=== PATIENT | male | born 1940 | race Caucasian/White ===

== ENCOUNTER 2016-05-19 23:45 | Emergency (ER) | payer MEDICARE, BC ==
--- NOTE | ~2016-05-19 | CR72 ---
[facility] A Service of [facility] RADIOLOGY TEXT RESULTS PATIENT: DESTINY PALENCIA LOCATION: [facility] : 40 UNIT #: [id number] AGE: [address]: Mike Montiel MD SEX: M ORDER DR: [id number] [facility] [address] [place], [place] [address] [id number] E MR#: [id number] Acc #: [id number] NAME: DESTINY PALENCIA. : 1940 SEX: M STUDY DATE/TIME: 05/19/2016 23:41 UNIT: [facility] ROOM: STUDY DESCRIPTION: CR Chest Single View Portable Attending Physician: Er Doctor [facility] Ordering Physician: Mike Montiel M.D. Primary Care Physician: Kya Houston M.D. MEDICAL IMAGING REPORT This report is preliminary unless electronic signature is present EXAM Portable AP view of the chest COMPARISON July 26, 2013, June 29, 2013 and May 17, 2012. INDICATION 76-year-old male with chest pain and dyspnea for 1 day. FINDINGS Median sternotomy and changes of CABG noted. No evidence of sternotomy dehiscence. No pneumothorax or pleural effusion. Cardiomediastinal silhouette is within normal limits. No evidence of acute airspace disease. Degenerative changes of the lower cervical spine. There are likely arterial calcifications as well in the bilateral lower neck. Calcified granuloma left upper lobe. IMPRESSION 1. Prior CABG. No acute radiographic abnormality of the chest. Normal heart size. 2. Arterial calcifications are suspected in the bilateral lower neck, not well evaluated on this study due to partial exclusion. Dictated by... Bandar Hamlin M.D. THIS IS AN ELECTRONICALLY VERIFIED REPORT Bandar Hamlin M.D. at 05/26/2016 9:58 AM MAMIE/eva TD: 05/20/2016 07:05 JOB #: [id number] [facility] A Service of [facility] RADIOLOGY TEXT RESULTS PATIENT: DESTIN[facility] PALENCIA [id number] : 40 UNIT #: [id number] AGE: [address]: Mike Montiel MD SEX: M ORDER DR: MEDICAL IMAGING REPORT COPY
--- NOTE | ~2016-05-19 | EKG ---
PATIENT: DESTINY PALENCIA UNIT #: [id number] Ventricular Rate: 72 BPM Atrial Rate: 72 BPM P-R Interval: 228 ms QRS Duration: 124 ms Q-T Interval: 392 ms QTC Calculation(Bezet): 429 ms P [place]: 26 degrees Calculated R [place]: -41 degrees Calculated T [place]: 51 degrees Diagnosis Line: Sinus rhythm with 1st degree A-V block Diagnosis Line: Left axis deviation Diagnosis Line: Left bundle branch block Diagnosis Line: Abnormal ECG Diagnosis Line: When compared with ECG of 07-JUL-2014 19:22, Diagnosis Line: WI interval has increased Diagnosis Line: Left bundle branch block is now Present Diagnosis Line: Diagnosis Line: Confirmed by NATACHA MAGAÑA MD ([id number]) on Diagnosis Line: 05/20/2016 11:58:20 AM INTERPRETING : SANDRA
[~2016-05-19 23:45] MED LIST: ASPIRIN PO; ASPIRIN325 M1 PO; ASPIRIN81 M2 PO; COREG PO; COREG12.5 MG PO; GLYBURIDE PO; GLYNASE PO; LEVEMIR FL100 UNIT/1 SQ; LEVEMIR100 U/ML SUBQ; LIBRIUM PO; LISINOPRIL PO; LISINOPRIL-HCTZ1 T15 PO; LISINOPRIL-HCTZ1 T21 PO; LISINOPRIL10 MG PO; MEDI-MECLIZINE25 M1 PO; METFORMIN PO; PROAIR HFA8.5 GM; PROAIR HFA8.5 GM IH; SIMVASTATIN20 MG PO; VALIUM2 MG PO; ZESTRIL5 MG PO; ZITHROMAX PO; ZOCOR PO
[2016-05-20 01:52] LABS: BASOPHIL# 0.1 X10e3 (0-0.3); EOSINOPHIL# 0.2 X10e3 (0-0.7); EOSINOPHIL% 2.3 % (0.0-7.0); HEMATOCRIT 35.9 % (38.0-50.0); HEMOGLOBIN 12.2 gm/dL (13.0-16.0); LYMPHOCYTE# 2.2 X10e3 (1.0-3.5); LYMPHOCYTE% 23.5 % (17.0-45.0); MEAN CORPUSCULAR HEMOGLOBIN 31.2 PG (28-34); MEAN CORPUSCULAR HGB CONC 33.9 g/dL (30-36); MEAN PLATELET VOLUME 8.7 FL (6.5-11.5); MONOCYTE# 0.5 X10e3 (0-1.0); MONOCYTE% 5.6 % (3.0-12.0); NEUTROPHIL# 6.2 X10e3 (1.5-7.1); NEUTROPHIL% 67.6 % (40-75); PLATELET COUNT 305 X10e3 (140-420); WHITE BLOOD COUNT 9.2 X10e3 (4.0-10.5)
[2016-05-20 01:55] LABS: DIFF IND NO
[2016-05-20 02:34] LABS: ALBUMIN SERUM 3.6 g/dL (3.5-5.0); ALKALINE PHOSPHATASE 78 U/L (32-92); ALT (SGPT) 12 U/L (10-40); AST (SGOT) 17 U/L (10-42); BILIRUBIN, DIRECT 0.1 mg/dL (0.0-0.2); BILIRUBIN,INDIRECT 0.5 mg/dL (0.0-0.9); BILIRUBIN,TOTAL 0.6 mg/dL (0.2-2.0); BLOOD UREA NITROGEN 22 mg/dL (9-23); CALCIUM SERUM 8.8 mg/dL (8.4-10.2); CARBON DIOXIDE 26 mmol/L (22-31); CHLORIDE 104 mmol/L (100-111); GLOM FILT RATE Estimated ABOVE60 mL/min (>60); GLUCOSE FASTING 263 mg/dL (70-110); POTASSIUM 4.5 mmol/L (3.5-5.1); PROTEIN TOTAL SERUM 7.1 g/dL (6.0-8.3); SODIUM 139 mmol/L (135-145)
[2016-05-20 02:41] LABS: POC - CKMB 2.9 ng/mL (0.0-7.9); POC - TROPONIN <0.05 ng/mL (<=0.05)
[2016-05-20 03:04] LABS: POC - CKMB 2.5 ng/mL (0.0-7.9); POC - TROPONIN <0.05 ng/mL (<=0.05)
== END 2016-05-20 06:45 | disposition short-term general hospital (02) ==
LOC: CED 23:45
PROVIDERS: Emergency Medicine
DX: R07.89 Other chest pain (principal); E11.9 Type 2 diabetes mellitus without complications; I11.0 Hypertensive heart disease with heart failure; I50.9 Heart failure, unspecified; J44.9 Chronic obstructive pulmonary disease, unspecified; Z95.1 Presence of aortocoronary bypass graft; Z98.890 Other specified postprocedural states; Z79.899 Other long term (current) drug therapy
CPT/HCPCS: 36415; 71010; 80048; 80076; 82553; 84484; 85025; 93005; 99285

== ENCOUNTER → 2016-09-10 | Outpatient (CLI) | payer MEDICARE, BC ==
[2016-09-10 14:29] LABS: URINE APPEARANCE CLEAR; URINE BILIRUBIN NEG (NEG); URINE BLOOD NEG (NEG); URINE COLOR YELLOW; URINE GLUCOSE NEG (NORM); URINE KETONE NEG (NEG); URINE LEUKOCYTE ESTERASE NEG (NEG); URINE NITRATE NEG (NEG); URINE PH 5.5 (5-8); URINE PROTEIN NEG (NEG); URINE UROBILINOGEN 0.2 MG/DL (NORM)
[2016-09-10 14:34] LABS: BASOPHIL# 0.1 X10e3 (0-0.3); BASOPHIL% 1.1 % (0-2.5); EOSINOPHIL# 0.2 X10e3 (0-0.7); EOSINOPHIL% 1.8 % (0.0-7.0); HEMATOCRIT 37.6 % (38.0-50.0); LYMPHOCYTE# 2.5 X10e3 (1.0-3.5); LYMPHOCYTE% 21.2 % (17.0-45.0); MEAN CELL VOLUME 93.4 FL (83-96); MEAN CORPUSCULAR HEMOGLOBIN 32.2 PG (28-34); MEAN CORPUSCULAR HGB CONC 34.5 g/dL (30-36); MEAN PLATELET VOLUME 8.7 FL (6.5-11.5); MONOCYTE# 0.6 X10e3 (0-1.0); MONOCYTE% 5.6 % (3.0-12.0); NEUTROPHIL# 8.1 X10e3 (1.5-7.1); NEUTROPHIL% 70.3 % (40-75); PLATELET COUNT 350 X10e3 (140-420); RED BLOOD COUNT 4.03 X10e (3.90-5.60); RED CELL DISTRIBUTION WIDTH 13.2 % (11.0-15.5); WHITE BLOOD COUNT 11.6 X10e3 (4.0-10.5)
[2016-09-10 15:16] LABS: BUN/CREATININE RATIO 30.66; CALCIUM SERUM 8.6 mg/dL (8.4-10.2); CREATININE SERUM 1.5 mg/dL (0.6-1.4); GLOM FILT RATE Estimated 44.6 mL/min (>60); POTASSIUM 4.4 mmol/L (3.5-5.1)
[2016-09-10 15:29] LABS: DIFF IND NO; MICRO INDICATED? NO
== END | disposition home or self-care (01) ==
LOC: SLABONLY 13:21
PROVIDERS: Internal Medicine Nephrology
DX: N18.2 Chronic kidney disease, stage 2 (mild) (principal)
CPT/HCPCS: 36415; 80048; 81003; 85025